=== PATIENT | male | born 1975 | race Caucasian/White ===

== ENCOUNTER 2019-01-06 19:51 | Emergency (ER) | payer BC ==
[~2019-01-06] VITALS: Ht 172.7 cm; Wt 104.3 kg
[2019-01-06 20:00] VITALS: BP 139/69
--- NOTE | 2019-01-06 20:03 | NUR ---
TO LOBBY A/W BED, AMBULATORY
--- NOTE | 2019-01-06 20:17 | NUR ---
PT TO ER BED 10
--- NOTE | 2019-01-06 20:26 | NUR ---
43 YO M BIB SELF AND PRESENTS TO ED C/O SYNCOPAL EPISODE THAT OCCURED AROUND 1700. PT STATES HE WAS IN THE BATHROOM WHEN HE FELT LIKE HE WAS "ABOUT TO PASS OUT." HE CALLED FOR HIS AND SHE STATES THAT HE "FELT HOT AND WAS SWEATING". PT STATES HE DID NOT LOSE CONSCIOUSNESS BUT STATES HE WAS UNABLE TO ANSWER QUESTIONS FOR A FEW MINUTES. ALSO REPORTS THAT PT "WAS SHAKING". PT DENIES NV AND SOB. PT STATES HE HAS A HX OF GERD AND IS EXPERIENCING 2/10 BURNING EPIGASTRIC DISCOMFORT IN HIS CHEST BUT HE "DOESN'T KNOW IF IT IS RELATED TO HIS HEART". -- PT APPEARS CALM AT THIS TIME. COOPERATIVE, BEHAVIOR APPROPRIATE. -- SKIN PINK, DRY, WARM. NO DIAPHORESIS NOTED AT THIS TIME. -- VSS. BREATHING EVEN, UNLABORED. PMH-- GERD, ANXIETY RX-- ASPIRIN AT 1730 (PROPHYLACTIC)
--- NOTE | 2019-01-06 21:13 | NUR ---
ORTHOSTATIC VITAL SIGNS TAKEN; SUPINE BP 120/70, HR 63; SITTING BP 131/64, HR 67; STANDING BP 116/65, HR 62; PT DENIES DIZZINESS WHILE SWITCHING POSITIONS.
--- NOTE | 2019-01-06 21:15 | NUR ---
LAB AT BEDSIDE.
--- NOTE | 2019-01-06 21:25 | NUR ---
EMT PERFORMING EKG AT BEDSIDE.
[2019-01-06 21:27] LABS: BASOPHILS % (AUTO) 0.3 % (0.0-2.0); EOSINOPHILS # (AUTO) 0.1 K/uL (0-0.4); EOSINOPHILS % (AUTO) 1.4 % (0.0-4.0); HEMATOCRIT 44.1 % (36-52); HEMOGLOBIN 15.1 g/dL (12.0-18.0); LYMPHOCYTES # (AUTO) 2.5 K/uL (2.0-11.5); LYMPHOCYTES % (AUTO) 25.2 % (20.5-51.1); MEAN CORPUSCULAR HEMOGLOBIN 31 pg (27-31); MEAN CORPUSCULAR HGB CONC 34 g/dL (33-37); MEAN CORPUSCULAR VOLUME 88.9 fL (80-94); MONOCYTES # (AUTO) 0.6 K/uL (0.8-1.0); MONOCYTES % (AUTO) 6.2 % (1.7-9.3); NEUTROPHILS # (AUTO) 6.6 K/uL (1.8-7.7); NEUTROPHILS % (AUTO) 66.9 % (42.2-75.2); PLATELET COUNT (AUTO) 283 K/uL (140-450); RED BLOOD CELL COUNT(AUTO) 4.96 MIL/uL (4.20-6.10); RED CELL DISTRIBUTION WIDTH 13.4 % (11.6-13.7); WHITE BLOOD COUNT (AUTO) 9.9 K/uL (4.8-10.8)
[2019-01-06 21:44] LABS: ANION GAP 12.1 (8-16); CARBON DIOXIDE 28.2 mmol/L (21-32); CREATININE 1.2 mg/dL (0.7-1.3); POTASSIUM 3.3 mmol/L (3.5-5.1)
[2019-01-06 21:49] LABS: ALBUMIN 4.1 g/dL (3.4-5.0); TOTAL BILIRUBIN 0.4 mg/dL (0.0-1.0)
[2019-01-06 22:08] VITALS: BP 103/62
--- NOTE | 2019-01-06 22:08 | NUR ---
Patient discharged with v/s stable. Written and verbal after care instructions given and explained. Patient verbalized understanding. Ambulatory with steady gait. All questions addressed prior to discharge. Advised to follow up with PMD. Addendum: 01/06/19 at 2244 by [facility] DENIES DIZZINESS AT THIS TIME.
== END 2019-01-06 22:08 | disposition home or self-care (01) ==
LOC: MED 19:51
DX: R42 Dizziness and giddiness (principal); K21.9 Gastro-esophageal reflux disease without esophagitis; F41.9 Anxiety disorder, unspecified; F17.200 Nicotine dependence, unspecified, uncomplicated
CPT/HCPCS: 36415; 80053; 85025; 93005; 99284